=== PATIENT | male | born 1980 | race Hispanic/Latino ===

== ENCOUNTER 2020-05-11 19:49 | Emergency (ER) | payer BC ==
[2020-05-11] MEDS ORDERED: LORazepam 2 MG/ML VIAL IV PRN ×2 (20:29)
[2020-05-11 20:33] LABS: BUN/Creatinine Ratio 8; Blood Urea Nitrogen 7 mg/dL (9-20); Calcium 8.7 mg/dL (8.4-10.2); Hemolysis Index 17
[2020-05-11 20:40] LABS: Hematocrit 48.7 % (35.5-45.6); Mean Corpuscular HGB Conc 35 % (32-34); Mean Corpuscular Volume 97 fl (84-94); Red Blood Count 5.03 M/mm3 (3.65-5.03)
[2020-05-11 20:41] LABS: Eosinophils % (Auto) 0.8 % (0.0-4.3); Lymphocytes % (Auto) 27.4 % (13.4-35.0); Monocytes % (Auto) 4.6 % (0.0-7.3); Platelet Count 178 K/mm3 (140-440); Red Cell Distribution Width 14.7 % (13.2-15.2)
[2020-05-11 20:42] LABS: Basophils % (Auto) 0.4 % (0.0-1.8); Eosinophils # (Auto) 0.1 K/mm3 (0.0-0.4); Lymphocytes # (Auto) 1.8 K/mm3 (1.2-5.4); Monocytes # (Auto) 0.3 K/mm3 (0.0-0.8)
--- NOTE | 2020-05-11 20:49 | Emergency Department Report ---
<LOYD LEEWiley - Last Filed: 05/12/20 00:34> ED Alcohol HPI - General Chief Complaint: Alcohol Stated Complaint: DETOX/MEDICAL CLEARANCE Time Seen by Provider: 05/11/20 20:19 Source: patient Mode of arrival: Ambulatory Limitations: No Limitations - History of Present Illness Initial Comments: Patient is 40 years old male with history of chronic alcohol abuse. Patient presented to the ER for medical clearance for alcohol detox program. Patient stated that he has been drinking daily for the last 2 weeks. Patient stated that he drink this morning. Patient denied any seizure, visual hallucination or tremor. Patient denied any suicidal or homicidal ideation. MD Complaint: desires rehab, medical clearance for det Chronic Alcohol Use: Yes Previous Visits for Alcohol Intoxication?: Yes Recent Trauma: No Associated Symptoms: denies other symptoms Treatments Prior to Arrival: none - Related Data Allergies Allergy/AdvReac Type Severity Reaction Status Date / Time No Known Allergies Allergy Unverified 05/11/20 20:02 ED Review of Systems Comment: All other systems reviewed and negative Constitutional: denies: chills, fever Respiratory: denies: cough, shortness of breath, SOB with exertion Cardiovascular: denies: chest pain, palpitations Gastrointestinal: denies: abdominal pain, nausea, vomiting Musculoskeletal: denies: back pain Neurological: denies: headache, weakness Psychiatric: denies: anxiety, depression, auditory hallucinations, visual hallucinations, homicidal thoughts, suicidal thoughts ED Past Medical Hx - Past Medical History Previous Medical History?: Yes Additional medical history: Chronic Neck pain - Surgical History Past Surgical History?: Yes Additional Surgical History: Right ankle - Social History Smoking Status: Never Smoker Substance Use Type: None, Marijuana ED Physical Exam - General Limitations: No Limitations General appearance: alert, in no apparent distress, appears intoxicated - Head Head exam: Present: atraumatic, normocephalic, normal inspection - Eye Eye exam: Present: normal appearance, PERRL - ENT ENT exam: Present: normal exam, normal orophraynx, mucous membranes moist - Neck Neck exam: Present: normal inspection, full ROM. Absent: tenderness, meningismus - Respiratory Respiratory exam: Present: normal lung sounds bilaterally - Cardiovascular Cardiovascular Exam: Present: regular rate, normal rhythm, normal heart sounds - GI/Abdominal GI/Abdominal exam: Present: soft, normal bowel sounds. Absent: distended, tenderness, guarding, rebound, rigid, organomegaly, mass, bruit, pulsatile mass, hernia - Extremities Exam Extremities exam: Present: normal inspection, full ROM, normal capillary refill. Absent: tenderness - Back Exam Back exam: Present: normal inspection, full ROM. Absent: CVA tenderness (R), CVA tenderness (L) - Neurological Exam Neurological exam: Present: alert, oriented X3, CN II-XII intact - Psychiatric Psychiatric exam: Present: normal mood - Skin Skin exam: Present: warm, intact, normal color ED Medical Decision Making - Lab Data Result diagrams: 05/11/20 20:04 05/11/20 20:04 - Medical Decision Making Patient is 40 years old male with history of chronic alcohol abuse. Patient presented to the ER for medical clearance for alcohol detox program. Patient stated that he has been drinking daily for the last 2 weeks. Patient stated that he drink this morning. Patient denied any seizure, visual hallucination or tremor. Patient denied any suicidal or homicidal ideation. Labs reviewed and is unremarkable except for significantly high alcohol level of 0.4. Patient will be medically clear after he is sober. ED Disposition Clinical Impression: Alcohol intoxication Disposition: DC-01 TO HOME OR SELFCARE Is pt being admited?: No Condition: Good Instructions: Alcohol Intoxication Additional Instructions: Patient is medically clear for alcohol rehab program. Referrals: PRIMARY CARE, [Primary Care Provider] - 3-5 Days <CHEPE SAAVEDRA - Last Filed: 05/12/20 21:33> ED Review of Systems ROS: Stated complaint: DETOX/MEDICAL CLEARANCE Other details as noted in HPI ED Course Vital Signs 05/11/20 05/11/20 05/11/20 19:53 20:35 22:00 Temperature 99.1 F Pulse Rate 120 H 105 H 101 H Respiratory 18 18 18 Rate Blood Pressure 138/92 Blood Pressure 103/72 109/69 [Left] O2 Sat by Pulse 94 94 95 Oximetry 05/11/20 05/12/20 05/12/20 23:26 00:41 03:27 Temperature Pulse Rate 102 H 111 H 109 H Respiratory 18 20 18 Rate Blood Pressure Blood Pressure 119/75 119/81 114/76 [Left] O2 Sat by Pulse 95 95 97 Oximetry 05/12/20 05/12/20 05/12/20 04:33 05:33 07:26 Temperature Pulse Rate 99 H 97 H 95 H Respiratory 18 18 Rate Blood Pressure Blood Pressure 122/81 122/89 139/109 [Left] O2 Sat by Pulse 94 95 98 Oximetry 05/12/20 05/12/20 05/12/20 08:00 08:21 13:24 Temperature Pulse Rate 95 H 132 H Respiratory 18 Rate Blood Pressure Blood Pressure 117/75 131/89 [Left] O2 Sat by Pulse 98 98 96 Oximetry - Reevaluation(s) Reevaluation #1: 05/12/20 01:54 Patient resting comfortably in stretcher at this time, in no acute distress, a waiting clinical sobriety. Holding orders are initiated, pending clinical sobriety. 05/12/20 05:38 Patient resting comfortably at this time, in no acute distress. Still somewhat intoxicated, although alert and oriented as per nursing documentation. Care will be transferred to oncoming ER physician to reassess for clinical sobriety, and discharge when clinically sober. ED Medical Decision Making - Lab Data Result diagrams: 05/11/20 20:04 05/11/20 20:04 Critical care attestation.: If time is entered above; I have spent that time in minutes in the direct care of this critically ill patient, excluding procedure time. ED Disposition Is pt being admited?: No Does the pt Need Aspirin: No
[2020-05-11 22:58] LABS: Bilirubin,Urine NEG (Negative); Blood,Urine NEG (Negative); Color,Urine Yellow (Yellow); Protein,Urine <15 mg/dL mg/dL (Negative); RBC,Urine < 1.0 /HPF (0.0-6.0); Urobilinogen,Urine < 2.0 mg/dL (<2.0); WBC,Urine < 1.0 /HPF (0.0-6.0)
[2020-05-11 23:26] LABS: Benzodiazepines Screen,Urine PRESUMPTIVE POSITIVE; Cannabinoid Screen,Urine PRESUMPTIVE POSITIVE
[2020-05-11 23:28] LABS: Amphetamine Screen,Urine PRESUMPTIVE NEGATIVE
[2020-05-11 23:29] LABS: Cocaine Screen,Urine PRESUMPTIVE NEGATIVE; Methadone Screen,Urine PRESUMPTIVE NEGATIVE; Opiate Screen,Urine PRESUMPTIVE NEGATIVE
[2020-05-12] MEDS ORDERED: DEXTROSE 50% IN WATER (25GM) 50 ML SYRINGE IV PRN (01:53)
[2020-05-12] MEDS: LORazepam 2 MG/ML VIAL IV PRN ×2 (03:34→13:20)
[2020-05-12 13:25] VITALS: BP 131/89
== END 2020-05-12 15:44 | disposition home or self-care (01) ==
LOC: ED 19:49
DX: F10.129 Alcohol abuse with intoxication, unspecified (principal); F12.10 Cannabis abuse, uncomplicated; Z98.890 Other specified postprocedural states
CPT/HCPCS: 36415; 80048; 80307; 81001; 82962; 85025; 96374; 99284; J2060; 80320; G0480